=== PATIENT | male | born 1955 | race Two or more races ===

== ENCOUNTER 2018-11-19 08:49 | Outpatient (CLI) | payer OTHER | END 2018-11-19 09:05 | disposition home or self-care (01) | LOC: RX STUDY 08:49 | DX: R13.14 Dysphagia, pharyngoesophageal phase (principal) ==

== ENCOUNTER 2020-11-09 09:00 | Outpatient (CLI) | payer OTHER | END 2020-11-09 09:19 | disposition home or self-care (01) | LOC: RX STUDY 09:00 | PROVIDERS: ATTEND Otolaryngology | DX: R13.13 Dysphagia, pharyngeal phase (principal); K22.8 Other specified diseases of esophagus ==

== ENCOUNTER 2023-01-02 09:53 | Outpatient (CLI) | payer OTHER | END 2023-01-02 09:57 | disposition home or self-care (01) | LOC: RX STUDY 09:53 | PROVIDERS: ATTEND Otolaryngology | DX: R13.13 Dysphagia, pharyngeal phase (principal) ==